=== PATIENT | female | born 1975 | race Caucasian/White ===

== ENCOUNTER 2019-01-25 05:04 | Emergency (ER) | payer SELFPAY ==
[~2019-01-25] VITALS: Ht 175.3 cm; Wt 76.2 kg
[~2019-01-25 05:04] MED LIST: ACET120S27; CARB400T; CLON0.25; HYDR-1421
[2019-01-25 05:27] VITALS: BP 126/69
[2019-01-25] MEDS ORDERED: IBUPROFEN 800 MG TAB PO ONE (07:45)
== END 2019-01-25 08:09 | disposition home or self-care (01) ==
LOC: ER 05:04
DX: S90.02XA Contusion of left ankle, initial encounter (principal); W22.8XXA Striking against or struck by other objects, initial encounter; Y93.89 Activity, other specified; Y99.8 Other external cause status; Y92.89 Other specified places as the place of occurrence of the external cause
CPT/HCPCS: 73610; 73630; 81025